=== PATIENT | female | born 1990 | race Caucasian/White ===

== ENCOUNTER 2019-02-28 20:07 | Emergency (ER) | payer OTHER ==
[~2019-02-28] VITALS: Ht 172.7 cm; Wt 85.3 kg
[2019-02-28 22:05] LABS: BASOPHIL % 0.6 % (0-2); PLATELET COUNT 239 x10^3mcL (130-400); RED CELL DISTRIBUTION WIDTH 13.4 % (11.5-14.5)
[2019-02-28 22:12] LABS: CALCIUM 9.4 mg/dL (8.5-10.1); CARBON DIOXIDE 30.7 mmol/L (21-32); CHLORIDE SERUM 104 mmol/L (98-107); CREATININE SERUM 0.6 mg/dL (0.6-1.0); GFR1 > 60 mL/min; GLUCOSE SERUM 99 mg/dL (74-106); POTASSIUM SERUM 3.9 mmol/L (3.5-5.1); SODIUM SERUM 141 mmol/L (136-145)
[2019-02-28 22:17] LABS: ALBUMIN 4.2 g/dL (3.4-5.0); ALKALINE PHOSPHATASE 85 U/L (46-116); ALT/SGPT 28 U/L (14-59); AST/SGOT 15 U/L (15-37); BILIRUBIN TOTAL 0.3 mg/dL (0.20-1.00)
[2019-02-28 22:20] LABS: TOTAL PROTEIN, SERUM 8.8 g/dL (6.4-8.2)
[2019-02-28 23:23] VITALS: BP 123/70
== END 2019-02-28 23:23 | disposition home or self-care (01) ==
LOC: ED 20:07
PROVIDERS: Emergency Medicine
DX: Z13.89 Encounter for screening for other disorder (principal); Z20.5 Contact with and (suspected) exposure to viral hepatitis
CPT/HCPCS: 36415; 87491; 87591; 90746

== ENCOUNTER 2019-10-17 07:09 | Emergency (ER) | payer OTHER, SELFPAY ==
[~2019-10-17] VITALS: Ht 167.6 cm; Wt 65.3 kg
[2019-10-17 07:20] VITALS: Ht 167.6 cm; Wt 65.3 kg
[2019-10-17 08:50] VITALS: BP 152/98
== END 2019-10-17 08:50 | disposition home or self-care (01) ==
LOC: ED 07:09
DX: R07.89 Other chest pain (principal); R06.02 Shortness of breath; R23.8 Other skin changes; R51 Headache; M79.10 Myalgia, unspecified site; Z20.828 Contact with and (suspected) exposure to other viral communicable diseases; Z90.89 Acquired absence of other organs; Z98.890 Other specified postprocedural states
CPT/HCPCS: Q0092